=== PATIENT | male | born 1975 | race Caucasian/White ===

== ENCOUNTER 2021-02-11 10:07 | Inpatient (IN) ==
[2021-02-11] MEDS ORDERED: Dexamethasone Sodium Phos/PF 10 MG/ML VIAL IVP ONE (10:45)
[2021-02-11] MEDS ORDERED: 0.9 % Sodium Chloride 1,000 ML IVC ONE (10:45)
[2021-02-11 11:29] LABS: Hematocrit 40.9 % (37.5-50.1); Hemoglobin 13.9 g/dL (12.9-16.9); Mean Corpuscular Hemoglobin 28.5 pg (28.0-33.3); Mean Corpuscular Volume 83.8 fL (83.0-100.0); Platelet Count 257 K/mcL (140-400); Red Blood Count 4.88 M/mcL (4.19-5.50); Red Cell Distribution Width 12.6 % (11.5-14.5); White Blood Count 7.1 K/mcL (4.3-11.1)
[2021-02-11 11:30] LABS: BUN/Creatinine Ratio 20 (6-26); Basophils % 0.3 %; Blood Urea Nitrogen 17 mg/dL (6-20); Carbon Dioxide 28 mEq/L (23-29); Chloride 97 mEq/L (98-107); Eosinophils % 0.3 %; Glucose 101 mg/dL (70-105); Immature Granulocytes % 0.4 % (0-4); Lymphocytes % 14.6 %; Mean Platelet Volume 9.5 fL (9.4-12.4); Monocytes # 0.5 K/mcL (0.0-1.3); Monocytes % 7.6 %; Neutrophils # 5.5 K/mcL (1.6-8.9); Osmolality,Calculated 278 (280-300); Potassium 3.7 mEq/L (3.5-5.1); Segmented Neutrophils % 76.8 %; Sodium 133 mEq/L (136-145); eGFR For African Americans > 60 (> 60); eGFR For Non-African Americans > 60 (> 60)
[2021-02-11 11:31] LABS: Troponin I < 0.03 ng/mL (< 0.04)
[2021-02-11 11:50] LABS: INR 8.2; Prothrombin Time 89.2 Seconds (9.4-12.1)
[2021-02-11] MEDS ORDERED: Naloxone 0.4 MG/ML INJ IVP PRN (14:11)
[2021-02-11] MEDS ORDERED: Ondansetron 4 MG/2 ML VIAL IVP PRN (14:11)
[2021-02-11] MEDS ORDERED: Acetaminophen 325 MG TABLET PO PRN (14:11)
[2021-02-11] MEDS: Pantoprazole 40 MG VIAL IVP SCH (15:55)
[2021-02-11] MEDS: Ipratropium 1 PUFF INHALER IH SCH ×3 (16:30→23:16)
[2021-02-12] MEDS: Ipratropium 1 PUFF INHALER IH SCH ×6 (03:35→23:31)
[2021-02-12 06:01] LABS: Basophils % 0.5 %; Hematocrit 40.2 % (37.5-50.1); Hemoglobin 13.3 g/dL (12.9-16.9); Immature Granulocytes % 0.5 % (0-4); Lymphocytes # 0.9 K/mcL (0.6-4.6); Lymphocytes % 15.4 %; Mean Corpuscular HGB Conc 33.1 g/dL (31.6-35.5); Mean Corpuscular Hemoglobin 28.9 pg (28.0-33.3); Mean Corpuscular Volume 87.4 fL (83.0-100.0); Mean Platelet Volume 9.3 fL (9.4-12.4); Monocytes # 0.5 K/mcL (0.0-1.3); Monocytes % 8.8 %; Neutrophils # 4.5 K/mcL (1.6-8.9); Platelet Count 247 K/mcL (140-400); Red Cell Distribution Width 12.6 % (11.5-14.5); Segmented Neutrophils % 74.8 %
[2021-02-12 06:11] LABS: D-Dimer < 215 ng/mLFEU (0-500)
[2021-02-12 06:13] LABS: Fibrinogen 895 mg/dL (169-393); Prothrombin Time 65.5 Seconds (9.4-12.1)
[2021-02-12 06:15] LABS: Alanine Aminotransferase 25 Units/L (7-52); Albumin 3.8 g/dL (3.5-5.7); Albumin/Globulin Ratio 1.3 (1.1-2.2); Alkaline Phosphatase 35 Units/L (34-104); Aspartate Amino Transferase 25 Units/L (13-39); BUN/Creatinine Ratio 21 (6-26); Bilirubin,Indirect 0.5 mg/dL (0.0-1.0); Bilirubin,Total 0.5 mg/dL (0.3-1.0); Blood Urea Nitrogen 16 mg/dL (6-20); Calcium 8.5 mg/dL (8.6-10.3); Carbon Dioxide 24 mEq/L (23-29); Chloride 101 mEq/L (98-107); Globulin 2.9 g/dL (2.4-3.5); Glucose 128 mg/dL (70-105); Magnesium 2.2 mg/dL (1.6-2.6); Osmolality,Calculated 279 (280-300); Sodium 133 mEq/L (136-145); Total Protein 6.7 g/dL (6.4-8.9); eGFR For African Americans > 60 (> 60); eGFR For Non-African Americans > 60 (> 60)
[2021-02-12 07:04] LABS: Platelet Estimate Normal (Normal)
[2021-02-12] MEDS: Pantoprazole 40 MG VIAL IVP SCH (09:30)
[2021-02-12] MEDS: Loratadine 10 MG TABLET PO SCH (09:31)
[2021-02-12] MEDS: Furosemide 40 MG/4 ML VIAL IVP SCH (13:37)
[2021-02-12 14:49] LABS: INR 5.2; Prothrombin Time 57.5 Seconds (9.4-12.1)
[2021-02-12] MEDS: Benzonatate 100 MG CAPSULE PO PRN (21:09)
[2021-02-13] MEDS: Ipratropium 1 PUFF INHALER IH SCH ×6 (04:13→23:57)
[2021-02-13 05:42] LABS: Basophils % 0.2 %; Eosinophils % 0.1 %; Hematocrit 39.1 % (37.5-50.1); Hemoglobin 12.9 g/dL (12.9-16.9); Immature Granulocytes % 0.5 % (0-4); Lymphocytes # 1.5 K/mcL (0.6-4.6); Lymphocytes % 15.3 %; Mean Corpuscular Hemoglobin 27.9 pg (28.0-33.3); Mean Corpuscular Volume 84.6 fL (83.0-100.0); Mean Platelet Volume 9.1 fL (9.4-12.4); Monocytes # 0.6 K/mcL (0.0-1.3); Monocytes % 6.7 %; Neutrophils # 7.4 K/mcL (1.6-8.9); Platelet Count 326 K/mcL (140-400); Red Blood Count 4.62 M/mcL (4.19-5.50); Red Cell Distribution Width 12.8 % (11.5-14.5); Segmented Neutrophils % 77.2 %
[2021-02-13 05:44] LABS: White Blood Count 9.6 K/mcL (4.3-11.1)
[2021-02-13 06:03] LABS: BUN/Creatinine Ratio 33 (6-26); Blood Urea Nitrogen 27 mg/dL (6-20); Calcium 8.8 mg/dL (8.6-10.3); Carbon Dioxide 24 mEq/L (23-29); Chloride 101 mEq/L (98-107); Glucose 109 mg/dL (70-105); Magnesium 2.2 mg/dL (1.6-2.6); Osmolality,Calculated 288 (280-300); Potassium 3.9 mEq/L (3.5-5.1); Sodium 136 mEq/L (136-145); eGFR For African Americans > 60 (> 60); eGFR For Non-African Americans > 60 (> 60)
[2021-02-13 06:04] LABS: Prothrombin Time 44.1 Seconds (9.4-12.1)
[2021-02-13] MEDS: Loratadine 10 MG TABLET PO SCH (07:59)
[2021-02-13] MEDS: Multivit/Ca/Min/Fe/FA 1 TAB TABLET PO SCH (07:59)
[2021-02-13] MEDS: Furosemide 40 MG/4 ML VIAL IVP SCH (08:00)
[2021-02-13] MEDS: Pantoprazole 40 MG VIAL IVP SCH (08:00)
[2021-02-13] MEDS: Benzonatate 100 MG CAPSULE PO PRN ×2 (09:24→21:47)
[2021-02-14] MEDS: Ipratropium 1 PUFF INHALER IH SCH ×4 (03:32→15:54)
[2021-02-14 06:21] LABS: Hematocrit 40.5 % (37.5-50.1); Hemoglobin 13.6 g/dL (12.9-16.9); Mean Corpuscular HGB Conc 33.6 g/dL (31.6-35.5); Mean Corpuscular Hemoglobin 28.1 pg (28.0-33.3); Mean Corpuscular Volume 83.7 fL (83.0-100.0); Mean Platelet Volume 8.9 fL (9.4-12.4); Platelet Count 355 K/mcL (140-400); Red Blood Count 4.84 M/mcL (4.19-5.50); Red Cell Distribution Width 12.6 % (11.5-14.5); White Blood Count 8.9 K/mcL (4.3-11.1)
[2021-02-14 06:33] LABS: INR 2.5; Prothrombin Time 28.6 Seconds (9.4-12.1)
[2021-02-14 06:50] LABS: BUN/Creatinine Ratio 33 (6-26); Blood Urea Nitrogen 28 mg/dL (6-20); Carbon Dioxide 25 mEq/L (23-29); Chloride 100 mEq/L (98-107); Glucose 99 mg/dL (70-105); Osmolality,Calculated 284 (280-300); Potassium 3.8 mEq/L (3.5-5.1); Sodium 134 mEq/L (136-145); eGFR For African Americans > 60 (> 60); eGFR For Non-African Americans > 60 (> 60)
[2021-02-14 07:36] VITALS: BP 120/70; PULSE 78; TEMP 98
[2021-02-14] MEDS: Multivit/Ca/Min/Fe/FA 1 TAB TABLET PO SCH (09:56)
[2021-02-14] MEDS: Loratadine 10 MG TABLET PO SCH (09:56)
[2021-02-14] MEDS: Furosemide 40 MG/4 ML VIAL IVP SCH (09:56)
[2021-02-14] MEDS: Pantoprazole 40 MG VIAL IVP SCH (09:57)
[2021-02-14 10:21] VITALS: O2SAT 97
== END 2021-02-14 16:44 | disposition home or self-care (01) | DRG 177 ==
LOC: EMEROOARM 10:07 → CDU 10:07 → SUATTDRO 14:25 → CDU 15:08
PROVIDERS: ADMIT Pharmacist; ATTEND Family Medicine